=== PATIENT | male | born 1970 | race Caucasian/White ===

== ENCOUNTER 2016-12-16 14:53 | Inpatient (IN) ==
[2016-12-16] MEDS ORDERED: ASPIRIN PO STA (15:02)
[2016-12-16 15:46] LABS: BASO% 0.1 % (0.0-0.8); EOS# 0.06 X1000 (0.0-0.7); EOS% 0.9 % (0.0-10.0); HEMOGLOBIN 10.3 g/dL (14.0-18.0); IMM GRAN# 0.02 X1000 (0.0-0.04); IMM GRAN% 0.3 % (0.0-0.5); LYMPH# 1.03 X1000 (1.2-3.4); LYMPH% 15.2 % (20.5-51.1); MANUAL DIFF NEEDED? NO; MCH 29.6 PG (27-31); MCHC 31.2 g/dL (33-37); MCV 94.8 FL (81-99); MONO# 0.61 X1000 (0.11-0.59); MPV 11.2 FL (7.4-10.4); NEUT% 74.5 % (42.2-75.2); PLT 129 X1000 (130-400); RBC 3.48 XMIL (4.7-6.1)
[2016-12-16] MEDS ORDERED: LABETALOL IV ONE (15:46)
[2016-12-16] MEDS ORDERED: NITROGLYCERIN TOP ONE (15:46)
--- NOTE | 2016-12-16 15:53 | PROVIDER DOCUMENTATION ---
HPI-Respiratory General - General Chief Complaint: Shortness of Breath Stated Complaint: FLUID RETENTION Time Seen by Provider: 12/16/16 15:22 Source: patient Allergies/Adverse Reactions: Patient Allergies Allergy/AdvReac Type Severity Reaction Status Date / Time acetaminophen [From Lortab] Allergy NAUSEA/VOMI Verified 12/16/16 15:43 TING aspirin Allergy NAUSEA/VOMI Verified 12/16/16 15:43 TING hydrocodone [From Lortab] Allergy NAUSEA/VOMI Verified 12/16/16 15:43 TING ketorolac [From Toradol] Allergy NAUSEA/VOMI Verified 12/16/16 15:43 TING Home Medications: Home Medication List Medication Instructions Recorded Confirmed Last Taken Type Albuterol Sulfate Inhaler 1 puff PO DAILY 12/16/16 12/16/16 12/16/16 08:00 History [Ventolin Hfa] Albuterol [Albuterol Neb] 1 dose PO DAILY 12/16/16 12/16/16 12/16/16 08:00 History Amitriptyline [Elavil] 25 mg PO HS 12/16/16 12/16/16 12/15/16 20:00 History LISINOpril [Prinivil] 20 mg PO DAILY 12/16/16 12/16/16 12/16/16 08:00 History Omeprazole 40 mg PO DAILY 12/16/16 12/16/16 12/16/16 08:00 History Ondansetron HCl 4 mg PO PRN PRN 12/16/16 12/16/16 Unknown History Pregabalin [Lyrica] 100 mg PO BID 12/16/16 12/16/16 12/16/16 08:00 History Umeclidinium Brm/Vilanterol Tr 1 puff PO DAILY 12/16/16 12/16/16 12/16/16 08:00 History [Anoro Ellipta 62.5-25 Mcg INH] - History of Present Illness-Resp Nature of Presenting Problem: He has been SOB since yest, it is increasing. Worsened by exertion, supine. 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 Has had chills, no fever. Normally gets dialysi on , but he moved here this last week, last dialysis was . He was 20+ kilos over dry weight then. Is to start Dialysis paperwork on Saturday. Quality of Pain: reports: aching (like NL has whith fluid overload) Severity in ED: reports: moderate Onset/Duration: reports: 24 hours ago Timing: reports: still present, constant, getting worse Context: reports: other (missed dialysis) Cough Quality/Degree: reports: dry cough Episode Frequency: occasional episodes Modifying Factors: improves with: lying down (worsened) Associated Symptoms: reports: cough, fever/chills (chills only), shortness of breath, short of breath Similar Symptoms Previously?: Yes Recently seen or treated by another doctor?: Yes (had pneumonia last month) Review of Systems - Adult - REVIEW OF SYSTEMS - ADULT Constitutional: reports: chills Eyes: reports: blurred vision Ears, Nose, Mouth & Throat: reports: no symptoms reported Cardiovascular: reports: chest pain, edema Respiratory: reports: dyspnea on exertion, shortness of breath Gastrointestinal: reports: abdominal pain (like when fluid overloaded) Genitourinary: reports: no symptoms reported Musculoskeletal: reports: no symptoms reported Integumentary: reports: no symptoms reported Neurological: reports: no symptoms reported Psychiatric: reports: no symptoms reported Endocrine: reports: no symptoms reported Hematologic/Lymphatic: reports: no symptoms reported Allergic/Immunologic: reports: no symptoms reported Past History - Adult - PAST MEDICAL HISTORY-ADULT Review of Records: reports: Medications Reviewed Cardiovascular: reports: HTN Respiratory: reports: COPD Gastrointestinal: reports: denies history Genitourinary: reports: kidney disease (born with 1 kidney, it failed, 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 on dangers of tobacco.: Discussed manners to quit use, and f/u contacts for add'l counseling. Physical Exam-General - PHYSICAL EXAM-ADULT Initial Vital Signs Reviewed: Yes - CONSTITUTIONAL General Appearance: alert, moderate distress - EYES Eyes: PERRL/EOMI, pink conjunctivae - HEAD, EARS, NOSE, MOUTH & THROAT HENMT: moist mucous membranes, normal ENT inspection, pharynx normal - NECK Neck: non-tender, full range of motion, supple, normal inspection - RESPIRATORY Respiratory: respiratory distress, accessory muscle use, crackles (bases) - CARDIOVASCULAR Cardiovascular: regular rate, rhythm, JVD - GASTROINTESTINAL (ABDOMEN) Abdominal Exam: soft, tenderness (RUQ) - MUSCULOSKELETAL Back Exam: normal inspection, no CVA tenderness, no vertebral tenderness Extremity: normal range of motion, non-tender, pedal edema (4+) - SKIN Integumentary: normal color, normal turgor, warm/dry - NEUROLOGIC 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, grossly normal, no motor/sensory deficits - PSYCHIATRIC Psych/Mental Status: normal mood/affect, normal thought content, normal thought process, oriented x 3 Progress - PLAN OF CARE/RESULTS Progress/Plan/Lab Results: Vital Signs - 8 hr 12/16/16 14:58 12/16/16 16:14 Temperature 97.8 F Pulse Rate 109 H 106 H Respiratory Rate 24 32 H Blood Pressure 186/115 150/100 O2 Sat by Pulse Oximetry 100 99 Laboratory Results - last 24 hr 12/16/16 12/16/16 12/16/16 15:00 15:00 15:00 WBC 6.77 RBC 3.48 L Hgb 10.3 L Hct 33.0 L MCV 94.8 MCH 29.6 MCHC 31.2 L RDW Std Deviation 17.2 H Plt Count 129 L MPV 11.2 H Immature Gran % (Auto) 0.3 Neut % (Auto) 74.5 Lymph % (Auto) 15.[address] % (Auto) 9.0 Eos % (Auto) 0.9 Baso % (Auto) 0.1 Immature Gran # (Auto) 0.02 Neut # (Auto) 5.04 Lymph # (Auto) 1.[address] # (Auto) 0.61 H Eos # (Auto) 0.06 Baso # (Auto) 0.01 PT 12.6 H INR 1.19 PTT (Actin FS) 29.6 D-Dimer 1.37 H Sodium Potassium Chloride Carbon Dioxide Anion Gap BUN Creatinine Estimated GFR/1.73 m2 BUN/Creatinine Ratio Glucose Calculated Osmolality Calcium Magnesium Total Bilirubin AST ALT Alkaline Phosphatase Creatine Kinase Troponin T Qed-X-Argapbwfddu Pept Total Protein Albumin Globulin Albumin/Globulin Ratio 12/16/16 12/16/16 12/16/16 15:36 15:36 15:36 WBC RBC Hgb Hct MCV MCH MCHC RDW Std Deviation Plt Count MPV Immature Gran % (Auto) Neut % (Auto) Lymph % (Auto) Lane % (Auto) Eos % (Auto) Baso % (Auto) Immature Gran # (Auto) Neut # (Auto) Lymph # (Auto) Lane # (Auto) Eos # (Auto) Baso # (Auto) PT INR PTT (Actin FS) D-Dimer Sodium 140 Potassium 4.7 Chloride 96 L Carbon Dioxide 27 Anion Gap 17 BUN 91 H Creatinine 8.9 H Estimated GFR/1.73 m2 6 BUN/Creatinine Ratio 10 Glucose 76 Calculated Osmolality 306 Calcium 7.4 L Magnesium 2.5 Total Bilirubin 0.42 AST 11 ALT 36 Alkaline Phosphatase 123 H Creatine Kinase 82 Troponin T 0.153 H Pcn-N-Abqofqdhvdc Pept > 88856 H Total Protein 6.6 Albumin 3.9 Globulin 2.7 Albumin/Globulin Ratio 1.4 Orders Category Date Time Status Cardiac Monitoring DIRECTED Care 12/16/16 15:02 Active Saline Loc NOW Care 12/16/16 15:02 Active CHEST-2 VIEWS [RAD] Stat Exams 12/16/16 15:02 Taken CBC WITH ELECTRONIC DIFF [HEME] Stat Lab 12/16/16 15:00 Completed CK PROFILE [SP CHEM] Stat Lab 12/16/16 15:36 Completed COMPREHENSIVE METABOLIC PANEL [CHEM] Stat Lab 12/16/16 15:36 Completed D-DIMER [CHEM] Stat Lab 12/16/16 15:00 Completed MAGNESIUM [CHEM] Stat Lab 12/16/16 15:36 Completed PRO B-NATRIURETIC PEPTIDE Stat Lab 12/16/16 15:36 Completed PROTIME WITH INR [COAG] Stat Lab 12/16/16 15:00 Completed PTT [COAG] Stat Lab 12/16/16 15:00 Completed TROPONIN T Stat Lab 12/16/16 15:36 Completed Furosemide [Lasix] Med 12/16/16 16:00 Discontinued 200 mg IV ONCE ONE LISINOpril [Prinivil] Med 12/16/16 21:00 Active 20 mg PO BID Labetalol Med 12/16/16 15:46 Discontinued 20 mg IV NOW ONE Nitroglycerin Med 12/16/16 15:46 Discontinued 1.5 inch TOP NOW ONE Oxygen Device Routine Oth 12/16/16 15:54 Completed EKG [EKG] Stat Ther 12/16/16 15:02 Ordered Result Diagrams: 12/16/16 15:00 12/16/16 15:36 - XRAY 1 XRAY Study: Chest Impression: Abnormal XRAY Interpretation: pul vsc congestion - CONSULTS/PCP/HOSPITALIST Notification #1 *Consult/PCP/Hospitalist*: Blake Time Discussed: 15:40 Consult Disposition: Will see in ED #2 Consult: Frederick Time Discussed: 16:50 Consult Disposition: Will see in ED, Admit Departure - Departure Date of Disposition Decision: 12/16/16 Time of Disposition Decision: 16:30 DIAGNOSIS: ESRD (end stage renal disease) on dialysis CHF (congestive heart failure) Qualifiers: Congestive heart failure type: unspecified congestive heart failure type Congestive heart failure chronicity: acute on chronic Qualified Code(s): I50.9 - Heart failure, unspecified Disposition: ADMITTED INPATIENT 09 Certified Medical Emergency: Emergent Condition: Good Referrals and Follow-Ups: None,PCP [Primary Care Provider] - - Critical Care Note This patient required my direct & personal management of CC.: No
[2016-12-16] MEDS ORDERED: LASIX IV ONE (16:00)
[2016-12-16 16:02] LABS: INR 1.19; PROTIME 12.6 Seconds (9.2-11.7); PTT 29.6 Seconds (22.0-36.0)
[2016-12-16 16:06] LABS: ALBUMIN 3.9 g/dL (3.5-5.0); CALCIUM 7.4 mg/dL (8.8-10.2); MAGNESIUM 2.5 mg/dL (1.5-2.7); POTASSIUM 4.7 mmol/L (3.5-5.1); TOTAL BILIRUBIN 0.42 mg/dL (0.20-1.00); TOTAL PROTEIN 6.6 g/dL (6.3-8.3)
--- NOTE | 2016-12-16 16:47 | Diag Imaging Result Doc PS360 ---
EXAM: CHEST-2 VIEWS INDICATION: sob TECHNIQUE: 2 views COMPARISON: None. FINDINGS: There are bilateral perihilar and medial lower lung zone infiltrates. This likely relates to pulmonary edema and pulmonary venous congestion. There is suggestion of minimal atelectasis at the left lung base. There is no discrete pleural fluid collection or pneumothorax. The heart is moderately enlarged. IMPRESSION: Suggestion of pulmonary venous congestion and mild interstitial edema. Electronically signed by Vipul Limon 12/16/2016 4:45 PM
--- NOTE | 2016-12-16 18:04 | CONSULTATION ---
DATE OF CONSULTATION: 12/16/2016 REASON FOR CONSULTATION: Shortness of breath. HISTORY OF PRESENT ILLNESS: Mr. Padilla is a 46-year-old white male who has end-stage kidney disease. He has hypertension and COPD. He states he had a transplant approximately 25 years ago from his sister but has been back on dialysis for about 2-3 years. He lives in the [place], [place]. He left [place] on Saturday missing his dialysis treatment. He had no arrangements made for dialysis in the [facility]. He states he moved here to be near his ex- and children feeling he had better social support in this setting. Over the weekend his shortness of breath has been progressively worse. He also has a cough with some chest discomfort when he coughs especially under the ribs bilaterally and in the epigastric area. Chills but no sweats. Cough but no sputum. No positional chest pain. He states that he has been chronically volume overloaded. He was most recently told that his weight was over 10 kg above his dry weight after his last dialysis treatment. He was hospitalized in [place] about a month ago and states that he did achieve his dry weight at that point. He was diagnosed with pneumonia at that time. He states he is constantly thirsty and his weight has been progressively rising. He does smoke. No alcohol use. PAST MEDICAL HISTORY: As above. No known heart disease. No liver disease, ulcers, etc. HOME MEDICATIONS: He is not able to relate these. The chart indicates ondansetron, lisinopril, amitriptyline, omeprazole, albuterol, Anoro Ellipta, pregabalin, albuterol. ALLERGIES: Acetaminophen, hydrocodone, ketorolac, aspirin. SOCIAL HISTORY: As above. FAMILY HISTORY: Noncontributory. REVIEW OF SYSTEMS: He describes dysphagia especially with solids. Chronic swelling. Chronic back and neck pain. PHYSICAL EXAM: Vital Signs: Blood pressure 186/115, heart rate 109, respirations 24, afebrile. Weight 65.8 kg. O2 saturation 100% on room air. General: He is a middle-aged, chronically ill- appearing man with some increased work of breathing but he is able to converse without dyspnea. Skin: Warm and dry. Slightly hyperpigmented. HEENT: Conjunctivae are pink and moist. Pupils equal, round. Oropharynx is dry with poor dentition. Neck: Supple. Trachea is midline. Neck vein distention is marked. Heart: PMI is somewhat displaced. Auscultation demonstrates mild tachycardia with summation gallop and a soft murmur. No rubs. Lungs: Have equal breath sounds with crackles at least half the way up bilaterally. No wheezes. Abdomen: Soft and mildly tender especially in the epigastrium but no guarding or rebound. Bowel sounds are present. No organomegaly is palpable. Extremities: Have 2+ edema. No clubbing or cyanosis. Neurologic Exam: Grossly nonfocal. LABORATORY DATA: Pending. IMPRESSION: 1. Shortness of breath. Likely caused by pulmonary edema. Exogenous fluid overload as well as marked hypertension with acute diastolic dysfunction. Despite this, his room air saturation is 100%. We will focus on getting his blood pressure down using nitrates and IV labetalol and supplemental oxygen for symptom management. If these measures do not improve his symptoms then he may require dialysis today. Otherwise, we will plan dialysis tomorrow and daily until we achieve a euvolemic state. 2. End-stage renal disease. He does not have an outpatient dialysis plan in [place] and his only insurance is out of state Medicaid. We will likely need to direct him back to his home clinic until he can address his financial issues once his acute care is addressed. 3. Hypertension. Plan as above. Continue his lisinopril. 4. Electrolytes/acid base/anemia. Await data. cc: Constantine Lozano MD
[2016-12-16] MEDS ORDERED: ZOFRAN IV PRN (18:09)
[2016-12-16] MEDS ORDERED: ALBUTEROL NEB INH PRN (18:18)
[2016-12-16] MEDS: MORPHINE IV SCH ×2 (18:46→21:30)
--- NOTE | 2016-12-16 20:50 | HISTORY AND PHYSICAL ---
PCP: In [place], [place]. CHIEF COMPLAINT: Volume overload, shortness of breath and weight gain. HISTORY OF PRESENT ILLNESS: The patient is a 46-year-old white male with a history of end-stage renal disease on renal dialysis after his kidney transplant failed a year and half ago. The patient went to [place], [place] on Saturday to get dialysis but he moved over here to live close to his son and his ex- and missed dialysis on Saturday because he could not get the paper through for him to get the dialysis so he came to the emergency room with 25 pounds of weight gain, severe shortness of breath, edematous on lower extremities and feeling bloated. He complained of mild chest discomfort but mostly feeling bloated. He denies having any fever or chills. Denies having any chest pain. The patient has not been able to lie down flat because of smothering. He reported having significant orthopnea, ambulating become a chore for him within the past 2-3 days. No other complaint reported. PAST MEDICAL HISTORY: 1. End-stage renal disease. 2. COPD. 3. Depression. 4. Hypertension. 5. Peripheral neuropathy. 6. GERD. 7. Tobacco abuse. PAST SURGICAL HISTORY: The patient has kidney transplant. He has a gallbladder removed. He has his right femur partially removed as well. ALLERGIES: The patient allergic to Tylenol, aspirin, hydrocortisone and Toradol. FAMILY HISTORY: Was reviewed, noncontributory. SOCIAL HISTORY: The patient smoked but no hard drugs. He does smoke marijuana occasionally. No alcohol. HOME MEDICATIONS: 1. Albuterol nebulizer and albuterol inhaler as needed every 3-4 hours. 2. Elavil 25 mg at bedtime. 3. Lisinopril 20 mg p.o. daily. 4. Omeprazole 40 mg p.o. daily. 5. Zofran 4 mg p.o. p.r.n. for nausea. 6. Lyrica 100 mg p.o. daily. 7. Breo inhaler. REVIEW OF SYSTEMS: Twelve systems were reviewed and were negative except for what is mentioned in HPI. PHYSICAL EXAMINATION: VITAL SIGNS: Blood pressure 154/101, pulse of 94, respirations 25, temperature of 97.8 degrees, saturations 98% on room air. GENERAL APPEARANCE: Cachectic white male in moderate distress due to shortness of breath. HEENT: Anicteric. Clear conjunctivae. NECK: Supple. No JVD. No bruit. CARDIOVASCULAR: S1, S2. Normal rate and rhythm. No murmur, rubs, or gallops. PULMONARY: Has crackle and wheezes bilaterally GI: Soft, nontender, nondistended. Normoactive bowel sounds. MUSCULOSKELETAL: No clubbing, cyanosis, or edema. LABORATORY: His white count 6.77, hemoglobin 10.3, hematocrit of 33.0, platelets of 129,000. Chemistry. Sodium 140, potassium 4.7, chloride 96, bicarb 27, BUN 91, creatinine 8.9. ProBNP greater than 35,000. Glucose of 76. RADIOLOGY: Chest x-ray shows pulmonary venous congestion with mild interstitial edema. ASSESSMENT AND PLAN: This is a 46-year-old white male admitted to the hospital for shortness of breath secondary to volume overload. 1. Volume overload due to missing dialysis. Nephrology is aware the patient blood pressure is high. We gave the patient morphine and nitroglycerin trying to help with his blood pressure and helping his breathing. 2. End-stage renal disease. Nephrology was consulted. Dr. Lozano is aware. If the patient not doing well tonight he will come in and dialyze him, if not he will do it early in the morning. Will admit the patient to the ICU. Will monitor the patient closely. 3. Hypertension and probably volume overload. We will increase lisinopril to twice a day. We will consider to add hydralazine p.r.n. 4. Deep vein thrombosis prophylaxis. Will put the patient on heparin twice a day. 5. Gastroesophageal reflux disease. Will continue his Prilosec. 6. Peripheral neuropathy. Continue Lyrica. 7. Chronic obstructive pulmonary disease with an acute exacerbation, start him on a low dose of steroids for his chronic obstructive pulmonary disease exacerbation. CODE STATUS: The patient is full code. TOTAL CRITICAL CARE: On this patient is 35 minutes.
[2016-12-16] MEDS: ELAVIL PO SCH (21:00)
[2016-12-16] MEDS: HEPARIN SUBQ SCH (21:00)
[2016-12-16] MEDS: PRINIVIL PO SCH (21:25)
[2016-12-16] MEDS: SOLU-MEDROL IV SCH (21:26)
[2016-12-16] MEDS: NITROGLYCERIN TOP SCH (21:38)
[2016-12-16] MEDS: LYRICA PO SCH (23:10)
[2016-12-17] MEDS: MORPHINE IV SCH ×8 (00:15→20:55)
[2016-12-17] MEDS: SOLU-MEDROL IV SCH ×3 (03:38→18:29)
[2016-12-17] MEDS: NITROGLYCERIN TOP SCH ×4 (04:36→21:00)
--- NOTE | 2016-12-17 05:47 | EKG Report ---
Test Performed on : 12/16/2016 3:18:52 PM Test Reason : Chest Pain Blood Pressure : / mmHG Vent. Rate : 108 BPM Atrial Rate : 108 BPM P-R Int : 152 ms QRS Dur : 094 ms QT Int : 376 ms P-R-T Axes : 073 054 082 degrees QTc Int : 503 ms Sinus tachycardia. Possible Left atrial enlargement Left ventricular hypertrophy Nonspecific T wave abnormality Abnormal ECG No previous ECGs available Unconfirmed Result
--- NOTE | 2016-12-17 06:49 | EKG Report ---
Test Performed on : 12/16/2016 7:36:56 PM Test Reason : NO ORDER IN [employer] Blood Pressure : / mmHG Vent. Rate : 098 BPM Atrial Rate : 098 BPM P-R Int : 154 ms QRS Dur : 094 ms QT Int : 398 ms P-R-T Axes : 075 066 078 degrees QTc Int : 508 ms Normal sinus rhythm. Possible Left atrial enlargement Nonspecific T wave abnormality Prolonged QT Abnormal ECG When compared with ECG of 16-DEC-2016 15:18, (Unconfirmed) No significant change was found Unconfirmed Result
[2016-12-17 07:13] LABS: CALCIUM 7.4 mg/dL (8.8-10.2); POTASSIUM 5.4 mmol/L (3.5-5.1)
[2016-12-17] MEDS ORDERED: ANORO ELLIPTA 62.5-25 MCG INH INH SCH (07:30)
[2016-12-17] MEDS: LYRICA PO SCH ×2 (08:48→20:52)
[2016-12-17] MEDS: HEPARIN SUBQ SCH ×2 (08:49→20:55)
[2016-12-17] MEDS: PRINIVIL PO SCH ×2 (08:49→20:52)
[2016-12-17] MEDS: PRILOSEC PO SCH (08:49)
[2016-12-17 09:00] LABS: MCH 29.4 PG (27-31); MCV 94.8 FL (81-99); MPV 11.7 FL (7.4-10.4); RBC 3.06 XMIL (4.7-6.1)
[2016-12-17] MEDS ORDERED: NS 2,000 ML MISC PRN (09:29)
[2016-12-17] MEDS ORDERED: HEPARIN IV PRN (09:29)
[2016-12-17] MEDS ORDERED: TIGHT: 0.2 ML/HR MISC PRN (09:29)
--- NOTE | 2016-12-17 10:45 | PROGRESS NOTE ---
DATE: 12/17/2016 SUBJECTIVE: The patient currently resting in bed. He continues to complain of abdominal distention but states that his breathing is slightly better. OBJECTIVE: Vital Signs: Temperature 98.1 degrees, pulse 96, respiratory rate 24, blood pressure 168/114. Intake 180 mL. Output 200 mL. PHYSICAL EXAMINATION: General: This is a middle-aged gentleman resting in bed. He is awake and alert. He is on room air in no acute distress. HEENT: Normocephalic, atraumatic. He has poor dentition. Oral mucosa moist. ABRAN, conjunctivae pink. Neck: Supple. Trachea midline. He has positive JVD. Cardiovascular: Regular rate and rhythm with a gallop noted. Pulmonary: He has equal excursion. He does have some crackles bilaterally. He has no overt wheezes noted. Abdomen: Round, distended, soft with positive bowel sounds. : Not inspected. He is voiding. Extremities: 2+ pretibial edema. No clubbing, cyanosis. Left upper extremity has an excellent AV fistula noted. Integumentary: Skin is warm and dry without rash or lesion. LAB DATA: Sodium 139, potassium 5.4, chloride 96, CO2 21, BUN 100, creatinine 9.6, calcium 7.4. ASSESSMENT AND PLAN: 1. Fluid volume overload secondary to not maintaining his dialysis prescription prior to coming to the state. In discussion with the patient, it is not uncommon for him to have to have 5 L removed at each dialysis treatment. 2. End-stage renal disease management. Again, we will dialyze today on a 2 K bath with UF to dry weight which will likely be greater than our max pull. We will plan for at least 6 L today and plan to dialyze tomorrow, four hour treatment. 3. Hypertension. He was started on home medications. Continue to address with volume removal. Plan to dialyze again tomorrow. 4. Electrolytes, acid-base balance. These are acceptable. See number above for plan. Seen, data reviewed, discussed with Vanessa Bang on 12/17/16. I agree with the above assessment and plan of care. rg Dictated by OBEY Palacios for Constantine Lozano MD cc: Constantine Lozano MD [facility]
--- NOTE | 2016-12-17 10:45 | PROGRESS NOTE ---
DATE: 12/17/2016 HISTORY: A 46-year-old complaining of volume overload, shortness of breath, and weight gain. History of end-stage renal disease, on renal dialysis after his kidney transplant failed a year and half ago. The patient went to [place], [place] on Saturday to get dialysis but he moved over here to live close to his son and ex-, and missed dialysis Saturday. This was because he could not get the paper through for him to get the dialysis. He came to the emergency room, 25 pounds of weight gain, severe shortness of breath, edematous lower extremities, and feeling bloated. He complained of mild chest discomfort, mostly feeling bloated through. He denied any fever or chills. No chest pain. PAST MEDICAL HISTORY: 1. End-stage renal disease. 2. COPD. 3. Depression. 4. Hypertension. 5. Peripheral neuropathy. 6. Gastroesophageal reflux disease. 7. Tobacco abuse. 8. The patient has had a kidney transplant. 9. He has had his gallbladder removed. 10. His right femur partially removed as well. PHYSICAL EXAMINATION: Vital Signs: Temperature 97.8 degrees, pulse 90, respirations 17, blood pressure 149/97. HEENT: Pupils are equal and round. Lungs: Clear in all lung murray. Cardiovascular Examination: Regular rhythm and rate without murmur or S3. Abdomen: Soft. Skin: Warm and dry. Is and Os: Eating well. He is eating breakfast. LABORATORY DATA: I reviewed labs from yesterday. EKG showed possible left atrial enlargement, nonspecific T-wave abnormality. Otherwise unremarkable. No real change from previous EKG from earlier on 12/16. Chest x-ray 12/16 suggested pulmonary venous congestion, mild interstitial edema. ASSESSMENT AND PLAN: 1. Volume overload due to missing dialysis. Nephrology on the case. Blood pressure was little high on presentation. He has end-stage renal disease. Dr. Lozano consulted. Continue to dialyze the fluid off. He got dialysis yesterday, I believe. Much better today. Breathing better. 2. Hypertension. He is on his lisinopril. We will discuss with Dr. Lozano on when to discharge. I think he can move to a regular floor. Looks much more comfortable. cc: Wally Duncan MD
[2016-12-17] MEDS ORDERED: NS 2,000 ML ONE (11:18)
[2016-12-17] MEDS ORDERED: HEPARIN ONE (11:19)
[2016-12-17] MEDS ORDERED: NICODERM PATCH TD SCH (12:00)
[2016-12-17] MEDS: ELAVIL PO SCH (20:52)
[2016-12-18] MEDS: MORPHINE IV SCH ×4 (00:33→15:02)
[2016-12-18] MEDS: NITROGLYCERIN TOP SCH ×2 (04:35→15:03)
[2016-12-18] MEDS: SOLU-MEDROL IV SCH (04:35)
[2016-12-18] MEDS ORDERED: TIGHT: 0.2 ML/HR MISC PRN (07:34)
[2016-12-18] MEDS ORDERED: HEPARIN IV PRN (07:34)
[2016-12-18] MEDS ORDERED: NS 2,000 ML MISC PRN (07:34)
[2016-12-18 07:35] VITALS: BP 136/88
[2016-12-18 08:10] LABS: HEMATOCRIT 29.6 % (42.0-52.0); HEMOGLOBIN 9.3 g/dL (14.0-18.0); MCH 29.8 PG (27-31); MCHC 31.4 g/dL (33-37); MCV 94.9 FL (81-99); RBC 3.12 XMIL (4.7-6.1)
[2016-12-18 08:27] LABS: ALBUMIN 3.3 g/dL (3.5-5.0); CALCIUM 7.6 mg/dL (8.8-10.2); POTASSIUM 5.9 mmol/L (3.5-5.1)
[2016-12-18] MEDS ORDERED: HEPARIN ONE (09:03)
[2016-12-18] MEDS ORDERED: NS 2,000 ML ONE (09:03)
--- NOTE | 2016-12-18 12:38 | PROGRESS NOTE ---
DATE: 12/18/2016 SUBJECTIVE: Patient resting in bed. He thinks he will go home after dialysis today. OBJECTIVE: Vital Signs: Temperature 97.7 degrees, pulse 95, respiratory rate 16, blood pressure 140/95. Intake 1.8 L. Output 5.5 L. General: This is a middle-aged gentleman resting in bed. Awake and alert. No acute distress. HEENT: Normocephalic, atraumatic. Oral mucosa moist. Poor dentition. ABRAN, conjunctivae pink. Neck: Supple. Trachea midline. Positive JVD. Cardiovascular: Regular rate and rhythm with an S3. Pulmonary: Equal excursion. He is clear bilaterally today. Abdomen: Soft, positive bowel sounds. : Not inspected. Minimal void. Extremities: 1+ pretibial edema. No clubbing, cyanosis. Left upper extremity with fistula noted. Integumentary: Skin is warm and dry without rash or lesion. LABORATORY DATA: WBC of 9.6, hemoglobin 9.3, sodium 136, potassium 5.9 CO2 28, BUN 79 creatinine 7.5. ASSESSMENT AND PLAN: 1. Fluid volume overload secondary to noncompliance and missed dialysis treatments. The patient was dialyzed yesterday. We were able to remove 5.5 L. We will again today attempt to get him down to dry weight. Unclear for be able to achieve that goal. I had a long discussion with the patient regarding his fluid status. The patient had reported to me that it was not uncommon for him to have 4-5 L on at every dialysis treatment. We discussed him monitoring his fluid intake and with a goal of less than 2 L of fluid intake a day total. The patient states that he used to never having issues with this fluids; however, he no longer makes urine to any great extent and now frequently comes in greater than maximal pull. 2. Hypertension improved after fluid removal. Again will work to get him to his dry weight today. Continue his home medications. 3. Electrolytes, acid-base balance, anemia. These are stable. We have got him on a 2 K bath today. 4. Disposition. We have received some information from the [facility] in [place]. We will work with the oncology social worker to make sure has an outpatient plan prior to discharge. Dictated by OBEY Palacios for Constantine Lozano MD Seen, data reviewed, discussed with Vanessa Bang on 12/18/16. I agree with the above assessment and plan of care. cc: Constantine Lozano MD [facility]
--- NOTE | 2016-12-18 14:23 | DISCHARGE SUMMARY ---
ADMISSION DATE: 12/16/2016 DISCHARGE DATE: 12/18/2016 HOSPITAL COURSE: This is a 46-year-old, recently moved here from [place], who he came in with volume overload, shortness of breath and weight gain. He had a history of end-stage renal disease on hemodialysis. Kidney transplant failed about a year and a half ago. The patient was in [place], [place] on Saturday. He got diuresis, but moved over here to live with his son, his ex- and missed dialysis Saturday because he could not get his papers in by his report. At any rate, he is volume overloaded. He came in diuresed and improved. His breathing was comfortable. [place] he could go home on 12/18/2016. PAST MEDICAL HISTORY: 1. End-stage renal disease. 2. COPD. 3. Depression. 4. Hypertension. 5. Peripheral neuropathy. 6. Gastroesophageal reflux disease. 7. Tobacco abuse. SURGICAL HISTORY: Patient was kidney transplant, had gallbladder removed. He has had a right femur partially removed as well. PLAN: Discharge him home. Follow up for dialysis, follow up with Dr. Lozano I believe. DISCHARGE MEDICATIONS: 1. Elavil 25 mg at bedtime. 2. Prinivil 20 mg b.i.d. 3. He was on Solu-Medrol which we can stop. 4. NicoDerm patch. I gave him 21 mg for 14 days. 5. Prilosec 40 mg a day. 6. Lyrica 100 mg p.o. b.i.d. 7. Anoro Ellipta 62.5/25 1 puff daily. DISPOSITION: He is encouraged to find a primary care as well for his follow up. cc: Wally Duncan MD
[2016-12-18] MEDS: PRILOSEC PO SCH (15:04)
== END 2016-12-18 15:36 | disposition home or self-care (01) ==
LOC: ED 14:53 → SUATTDRO 18:43 → EDIPHOLD 18:43 → ICU 12-17 01:27 → 4N 12-17 22:33
PROVIDERS: ATTEND Emergency Medicine